=== PATIENT | male | born 1995 | race Caucasian/White ===

== ENCOUNTER 2018-05-05 19:58 | Emergency (ER) | payer OTHER ==
[~2018-05-05] VITALS: Ht 152.4 cm; Wt 48.1 kg
[2018-05-05 19:58] VITALS: BP 126/97
--- NOTE | 2018-05-05 19:58 | NUR ---
PATIENT AMBULATED TO ER BED 7.
--- NOTE | 2018-05-05 20:00 | NUR ---
PT BIB SELF C/O PALIPITATION. PT STATES TO FELLING RAPID HEART RATE W/ PALIPITATIONS SINCE THIS MORNING, +TACHYCARDIA. EKG RYTHM: A-FIB. --DENIES N/V/D, CP, OR SOB. PT SKIN WARM, DRY AND INTACT. PT IS AAOX4. PT STATES 0/10 PAIN AT THIS TIME. PT IN GOWN, IN BED; BED IN LOWER LOCKED POSITION. ER MD MADE AWARE OF PT STATUS. WILL CONTINUE TO MONITOR. PMH: SVT RX: METROPOLOL
--- NOTE | 2018-05-05 20:04 | NUR ---
EKG PERFORMED AT BEDSIDE WITH RN PRESENT. PT COVERED IN GOWN DURING PROCEDURE
[2018-05-05] MEDS ORDERED: METOPROLOL 5 MG/5 ML VIAL IVP ONE ×2 (20:10→20:40)
[2018-05-05 20:13] LABS: BASOPHILS # (AUTO) 0.1 K/uL (0.00-0.22); EOSINOPHILS # (AUTO) 0.1 K/uL (0-0.4); EOSINOPHILS % (AUTO) 1.2 % (0.0-4.0); HEMATOCRIT 45.7 % (36-52); HEMOGLOBIN 15.8 g/dL (12.0-18.0); LYMPHOCYTES # (AUTO) 3.6 K/uL (2.0-11.5); LYMPHOCYTES % (AUTO) 33.2 % (20.5-51.1); MEAN CORPUSCULAR HEMOGLOBIN 31 pg (27-31); MEAN CORPUSCULAR HGB CONC 35 g/dL (33-37); MEAN CORPUSCULAR VOLUME 89.7 fL (80-94); MONOCYTES % (AUTO) 9.4 % (1.7-9.3); NEUTROPHILS # (AUTO) 5.9 K/uL (1.8-7.7); NEUTROPHILS % (AUTO) 55.2 % (42.2-75.2); PLATELET COUNT (AUTO) 317 K/uL (140-450); RED CELL DISTRIBUTION WIDTH 12.6 % (11.6-13.7); WHITE BLOOD COUNT (AUTO) 10.7 K/uL (4.8-10.8)
[2018-05-05 20:25] LABS: ANION GAP 13.4 (8-16); CARBON DIOXIDE 29.2 mmol/L (21-32); CREATININE 0.8 mg/dL (0.7-1.3); POTASSIUM 3.6 mmol/L (3.5-5.1)
--- NOTE | 2018-05-05 20:30 | NUR ---
X-RAY AT BEDSIDE.
[2018-05-05 20:44] LABS: ALBUMIN 4.7 g/dL (3.4-5.0); FREE T4 (FREE THYROXINE) 0.97 ng/dL (0.76-1.46); THYROID STIMULATING HORMONE 0.43 uIU/mL (0.34-3.74); TOTAL BILIRUBIN 0.6 mg/dL (0.0-1.0)
[2018-05-05] MEDS ORDERED: DILTIAZEM 25 MG/5 ML VIAL IVP ONE (21:30)
--- NOTE | 2018-05-05 21:58 | NUR ---
SECOND EKG PERFORMED AT DR KENDALL
[2018-05-05] MEDS ORDERED: DILTIAZEM 30 MG TAB PO ONE (22:20)
--- NOTE | 2018-05-05 22:40 | NUR ---
Patient discharged with v/s stable. Written and verbal after care instructions given and explained. Patient alert, oriented and verbalized understanding of instructions. Ambulatory with steady gait. All questions addressed prior to discharge. ID band removed. Patient advised to follow up with PMD. Rx of Cardizem given. Patient educated on indication of medication including possible reaction and side effects. Opportunity to ask questions provided and answered.
[2018-05-05 23:47] VITALS: BP 121/82
== END 2018-05-05 22:40 | disposition home or self-care (01) ==
LOC: MED 19:58
DX: I48.91 Unspecified atrial fibrillation (principal); I47.1 Supraventricular tachycardia
CPT/HCPCS: 36415; 71045; 80053; 83735; 84439; 84443; 84484; 85025; 93005; 96374; 96375; 99284; J3490; Q0092

== ENCOUNTER 2021-10-05 08:06 | Outpatient (CLI) | payer OTHER ==
[2021-10-05 08:42] LABS: BASOPHILS # (AUTO) 0.1 K/uL (0.00-0.22); EOSINOPHILS # (AUTO) 0.2 K/uL (0-0.4); EOSINOPHILS % (AUTO) 2.5 % (0.0-4.0); HEMATOCRIT 44.3 % (36-52); HEMOGLOBIN 15.4 g/dL (12.0-18.0); LYMPHOCYTES # (AUTO) 2.5 K/uL (2.0-11.5); LYMPHOCYTES % (AUTO) 36.5 % (20.5-51.1); MEAN CORPUSCULAR HEMOGLOBIN 31 pg (27-31); MEAN CORPUSCULAR HGB CONC 35 g/dL (33-37); MEAN CORPUSCULAR VOLUME 87.8 fL (80-94); MONOCYTES # (AUTO) 0.6 K/uL (0.8-1.0); MONOCYTES % (AUTO) 8.1 % (1.7-9.3); NEUTROPHILS # (AUTO) 3.5 K/uL (1.8-7.7); NEUTROPHILS % (AUTO) 51.9 % (42.2-75.2); PLATELET COUNT (AUTO) 292 K/uL (140-450); RED BLOOD CELL COUNT(AUTO) 5.04 MIL/uL (4.20-6.10); RED CELL DISTRIBUTION WIDTH 13.2 % (11.6-13.7); WHITE BLOOD COUNT (AUTO) 6.8 K/uL (4.8-10.8)
[2021-10-05 09:20] LABS: ALBUMIN 4.1 g/dL (3.4-5.0); ANION GAP 12.3 (8-16); CARBON DIOXIDE 28.5 mmol/L (21-32); CHOL/HDL RATIO 4.3 (1-4.5); CREATININE 0.9 mg/dL (0.6-1.3); POTASSIUM 3.8 mmol/L (3.5-5.1); THYROID STIMULATING HORMONE 0.74 uIU/mL (0.34-3.74); TOTAL BILIRUBIN 0.4 mg/dL (0.0-1.0)
[2021-10-06 09:06] LABS: T4 FREE (DIRECT) 1.19 ng/dL (0.82-1.77)
== END 2021-10-05 19:39 | disposition home or self-care (01) ==
LOC: MLB 08:06
DX: R03.0 Elevated blood-pressure reading, without diagnosis of hypertension (principal)
CPT/HCPCS: 36415; 80053; 83036; 84439; 84443; 85025; 86592; 86694; 86702; 87491